=== PATIENT | female | born 1975 | race Caucasian/White ===

== ENCOUNTER 2020-01-30 08:56 | Day surgery (SDC) | payer BC ==
[2020-01-30] MEDS ORDERED: LIDOCAINE HCL 2% 100 MG/5 ML IJ ONE (08:57)
[2020-01-30] MEDS ORDERED: DIPRIVAN 200 MG/20 ML IV ONE (10:21)
[2020-01-30] MEDS ORDERED: Ketamine HCl 50 MG/ML ONE (10:22)
--- NOTE | 2020-01-30 11:00 | XRAY ---
Indication: Bilateral L4-S1 MBB. Intraoperative fluoroscopy was provided for 10 seconds. Single digital spot image submitted for interpretation demonstrates posterior needle tips projecting over the expected course of the left and right L4-S1 nerve roots. Correlate with intraoperative findings/report.
--- NOTE | 2020-01-30 11:49 | XRAY ---
10 seconds of fluoroscopy was used in surgery for a bilateral L4-L5 and L5-S1 MBB.
[2020-01-30] MEDS ORDERED: Lactated Ringers 1,000 ML IV ONE (15:55)
== END 2020-01-30 10:45 | disposition home or self-care (01) ==
LOC: SDC-PAIN 08:56
PROVIDERS: ATTEND Psychiatry & Neurology Pain Medicine
DX: M47.816 Spondylosis without myelopathy or radiculopathy, lumbar region (principal); M79.7 Fibromyalgia; M41.9 Scoliosis, unspecified; G25.81 Restless legs syndrome; F41.9 Anxiety disorder, unspecified; Z79.899 Other long term (current) drug therapy
CPT/HCPCS: 64493; 64494; 72020; 77002; 84703; J2704

== ENCOUNTER 2020-05-07 12:54 | Day surgery (SDC) | payer BC ==
[2020-05-07] MEDS ORDERED: Depo-Medrol 40 MG/ML IM ONE (12:55)
[2020-05-07] MEDS ORDERED: BUPIVACAINE 0.5% VIAL IJ ONE (12:55)
[2020-05-07] MEDS ORDERED: Lactated Ringers 1,000 ML IV ONE (16:00)
--- NOTE | 2020-05-07 16:25 | XRAY ---
Indication: Bilateral SI joint injection. Intraoperative fluoroscopy was provided for 16 seconds. 4 digital spot images submitted for interpretation demonstrates posterior needle tip projecting over the inferior left and right SI joint. Correlate with intraoperative findings/report.
--- NOTE | 2020-05-07 16:38 | XRAY ---
16 seconds fluoroscopy time in surgery for bilateral SI joint injections.
== END 2020-05-07 15:40 | disposition home or self-care (01) ==
LOC: SDC-PAIN 12:54
PROVIDERS: ATTEND Psychiatry & Neurology Pain Medicine
DX: M46.1 Sacroiliitis, not elsewhere classified (principal); M79.7 Fibromyalgia; G25.81 Restless legs syndrome; Z79.899 Other long term (current) drug therapy; F41.9 Anxiety disorder, unspecified
CPT/HCPCS: 27096; 72202; 77002; 84703; J1030; G0260

== ENCOUNTER 2020-06-04 10:33 | Day surgery (SDC) | payer BC ==
[2020-06-04] MEDS ORDERED: Depo-Medrol 40 MG/ML IM ONE (10:34)
[2020-06-04] MEDS ORDERED: Xylocaine 1% Vial 30 ML PF IJ ONE (10:34)
[2020-06-04] MEDS ORDERED: BUPIVACAINE 0.5% VIAL IJ ONE (10:34)
[2020-06-04] MEDS ORDERED: DIPRIVAN 200 MG/20 ML IV ONE (11:35)
[2020-06-04] MEDS ORDERED: Ketamine HCl 50 MG/ML ONE (11:37)
[2020-06-04] MEDS ORDERED: MORPHINE SULFATE 10 MG/ML ONE (12:08)
[2020-06-04] MEDS ORDERED: TORAdol 30 mg Injection ONE (12:15)
--- NOTE | 2020-06-04 13:43 | XRAY ---
Indication: Right L4-S1 RFA. Intraoperative fluoroscopy was provided for 45 seconds. 3 digital spot image submitted for interpretation demonstrate posterior needle tips projecting over the expected right L4-S1 nerve roots. Correlate with intraoperative findings/report.
--- NOTE | 2020-06-04 13:45 | XRAY ---
45 seconds fluoroscopy time in surgery for right L4-S1 RFA.
[2020-06-04] MEDS ORDERED: Lactated Ringers 1,000 ML IV ONE (15:15)
== END 2020-06-04 12:10 | disposition home or self-care (01) ==
LOC: SDC-PAIN 10:33
PROVIDERS: ATTEND Psychiatry & Neurology Pain Medicine
DX: M47.816 Spondylosis without myelopathy or radiculopathy, lumbar region (principal); G25.81 Restless legs syndrome; M79.7 Fibromyalgia; F41.9 Anxiety disorder, unspecified; Z79.899 Other long term (current) drug therapy
CPT/HCPCS: 64635; 64636; 72100; 77002; 84703; J1030; J1885; J2001; J2270; J2704

== ENCOUNTER 2020-06-11 10:33 | Day surgery (SDC) | payer BC ==
[2020-06-11] MEDS ORDERED: BUPIVACAINE 0.5% VIAL IJ ONE (10:34)
[2020-06-11] MEDS ORDERED: Depo-Medrol 40 MG/ML IM ONE (10:34)
[2020-06-11] MEDS ORDERED: Xylocaine 1% Vial 30 ML PF IJ ONE (10:34)
[2020-06-11] MEDS ORDERED: Ketamine HCl 50 MG/ML ONE (12:07)
[2020-06-11] MEDS ORDERED: DIPRIVAN 200 MG/20 ML IV ONE (12:07)
--- NOTE | 2020-06-11 14:05 | XRAY ---
Indication: Left L4-S1 RFA Intraoperative fluoroscopy was provided for 17 seconds. 3 digital spot images submitted for interpretation demonstrates posterior needle tips projecting over the expected left L4-S1 nerve roots. Correlate with intraoperative findings/report.
--- NOTE | 2020-06-11 14:09 | XRAY ---
17 seconds fluoroscopy time in surgery for left L4-S1 RFA.
[2020-06-11] MEDS ORDERED: Lactated Ringers 1,000 ML IV ONE (15:43)
== END 2020-06-11 12:38 | disposition home or self-care (01) ==
LOC: SDC-PAIN 10:33
PROVIDERS: ATTEND Psychiatry & Neurology Pain Medicine
DX: M47.817 Spondylosis without myelopathy or radiculopathy, lumbosacral region (principal); M41.9 Scoliosis, unspecified; M79.7 Fibromyalgia; G25.81 Restless legs syndrome; F41.9 Anxiety disorder, unspecified; Z79.899 Other long term (current) drug therapy
CPT/HCPCS: 64635; 64636; 72100; 77002; 84703; J1030; J2001; J2704

== ENCOUNTER 2020-11-26 11:54 | Day surgery (SDC) | payer BC ==
[2020-11-26] MEDS ORDERED: BUPIVACAINE 0.5% VIAL IJ ONE (11:55)
[2020-11-26] MEDS ORDERED: Depo-Medrol 40 MG/ML IM ONE (11:55)
[2020-11-26] MEDS ORDERED: DIPRIVAN 200 MG/20 ML IV ONE (13:21)
--- NOTE | 2020-11-26 14:44 | XRAY ---
Indication: Bilateral SI joint injection. Intraoperative fluoroscopy provided for 20 seconds. 4 digital spot images submitted for interpretation demonstrates posterior needle tip projecting over the inferior left and right SI joint. Correlate with intraoperative findings/report.
--- NOTE | 2020-11-26 14:59 | XRAY ---
20 seconds fluoroscopy time in surgery for bilateral SI joint injections.
[2020-11-26] MEDS ORDERED: Lactated Ringers 1,000 ML IV ONE (16:05)
== END 2020-11-26 13:52 | disposition home or self-care (01) ==
LOC: SDC-PAIN 11:54
PROVIDERS: ATTEND Psychiatry & Neurology Pain Medicine
DX: M46.1 Sacroiliitis, not elsewhere classified (principal); M41.9 Scoliosis, unspecified; M79.7 Fibromyalgia; G25.81 Restless legs syndrome; F41.9 Anxiety disorder, unspecified; Z79.899 Other long term (current) drug therapy
CPT/HCPCS: 72202; 77002; 84703; J1030; J2704